=== PATIENT | male | born 1995 | race Two or more races ===

== ENCOUNTER 2020-02-18 17:35 | Emergency (ER) | payer OTHER ==
[~2020-02-18] VITALS: Ht 180.3 cm; Wt 125.6 kg
--- NOTE | 2020-02-18 17:50 | NUR ---
ED Nurse Note: Patient walked into ED from home c/o hemauria and tingling with urination since Saturday. Patient AxO x 4, no s/s of acute distress.
[2020-02-18 17:55] VITALS: BP 133/85
--- NOTE | 2020-02-18 18:02 | NUR ---
ED Nurse Note: Urine specimen collected and sent to lab
--- NOTE | 2020-02-18 18:19 | Emergency Room Report ---
History of Present Illness General Chief Complaint: Male Urogenital Problems Source: Patient Present Illness HPI 24-year-old male with no past medical history presents with mild hematuria for the past 5 days. He reports his urine is normal colored and then at the end there are few drops of blood. No clots. He denies any fever, flank pain, abdominal pain, dysuria. He does report urinary frequency and urgency. He denies any penile discharge. He has not been sexually active since October and has no history of STIs. No history of kidney stones. 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 Patient History Past Medical History: see triage record Reviewed Nursing Documentation: PMH: Agreed; PSxH: Agreed Nursing Documentation-PMH Past Medical History: No Stated History Review of Systems All Other Systems: negative except mentioned in HPI Physical Exam Vital Signs Date Time Temp Pulse Resp B/P (MAP) Pulse Ox O2 Delivery O2 Flow Rate FiO2 02/18/20 17:45 98.8 89 18 133/85 (101) 98 Room Air Sp02 EP Interpretation: reviewed, normal General Appearance: normal inspection, well appearing, no apparent distress, alert, GCS 15, non-toxic ENT: EOM grossly intact, normal pharynx, normal voice, TMs + canals normal, uvula midline Neck: normal inspection, full range of motion, supple, thyroid normal, no meningismus, no bony tend Respiratory: chest non-tender, lungs clear, normal breath sounds, no respiratory distress Cardiovascular #1: normal peripheral pulses, regular rate, rhythm Gastrointestinal: normal inspection, normal bowel sounds, non tender, soft, no mass, no organomegaly, no guarding, no rebound Genitourinary: no CVA tenderness Musculoskeletal: normal inspection, normal range of motion, no calf tenderness , gait/station normal, non-tender Neurologic: alert, motor strength/tone normal, pipe finisher III-XII nml as tested, oriented x3, sensory intact, speech normal Psychiatric: judgement/insight normal, mood/affect normal Skin: no rash, normal color, warm/dry Lymphatic: no adenopathy Medical Decision Making PA Attestation Dr. Alford is my supervising physician whom patient management and care has been discussed with. Diagnostic Impression: Primary Impression: UTI (urinary tract infection) Qualified Codes: N39.0 - Urinary tract infection, site not specified; R31.9 - Hematuria, unspecified ER Course Pt. presents to the ED c/o mild hematuria for 5 days with no dysuria, fever, flank pain. Ddx considered but are not limited to UTI, pyelonephritis, nephrolithiasis, bladder mass. Vital signs: are WNL, pt. is afebrile H&PE are most consistent with UTI ORDERS: Urinalysis shows UTI ED INTERVENTIONS: None required at this time. DISCHARGE: At this time pt. is stable for d/c to home. Will provide printed patient care instructions, and prescription for Cipro. Advised to follow up outpatient in 1-2 days. Care plan and follow up instructions have been discussed with the patient prior to discharge. Laboratory Tests Test 02/18/20 18:00 Urine Color Pale yellow Urine Appearance Cloudy Urine pH 5 (4.5-8.0) Urine Specific [place] 1.020 (1.005-1.035) Urine Protein 1+ (NEGATIVE) H Urine Glucose (UA) Negative (NEGATIVE) Urine Ketones Negative (NEGATIVE) Urine Blood 4+ (NEGATIVE) H Urine Nitrite Negative (NEGATIVE) Urine Bilirubin Negative (NEGATIVE) Urine Urobilinogen 1 MG/DL (0.0-1.0) H Urine Leukocyte Esterase 3+ (NEGATIVE) H Urine RBC 2-4 /HPF (0 - 0) H Urine WBC Tntc /HPF (0 - 0) H Urine Squamous Epithelial Cells Few /LPF (NONE/OCC) Urine Bacteria Few /HPF (NONE) Last Vital Signs Date Time Temp Pulse Resp B/P (MAP) Pulse Ox O2 Delivery O2 Flow Rate FiO2 02/18/20 17:55 98.8 18 133/85 98 Room Air 02/18/20 17:45 89 Disposition: HOME, SELF-CARE Condition: Stable Scripts Ciprofloxacin* (CIPRO*) 500 Mg Tablet 500 MG PO BID for 7 Days, #14 TAB Prov: Feli Partida N. P.A. 02/18/20 Feli Partida N. P.AHarpal February 18, 2020 18:19
[2020-02-18 18:30] VITALS: BP 133/85
--- NOTE | 2020-02-18 18:30 | NUR ---
ER DISCHARGE NOTE: Patient is cleared to be discharged per Feli CONNELLY, pt is aox4, on room air, with stable vital signs. pt was given dc and prescription instructions, pt was able to verbalize understanding, pt id band removed. pt is able to ambulate with steady gait. pt took all belongings.
[2020-02-18 18:43] LABS: APPEARANCE,URINE CLOUDY; BILIRUBIN, URINE NEGATIVE (NEGATIVE); COLOR,URINE PALE YELLOW; GLUCOSE, URINE (UA) NEGATIVE (NEGATIVE); KETONES,URINE NEGATIVE (NEGATIVE); LEUKOCYTE ESTERASE ,URINE 3+ (NEGATIVE); NITRITE,URINE NEGATIVE (NEGATIVE); PH,URINE 5 (4.5-8.0); PROTEIN,URINE 1+ (NEGATIVE); UROBILINOGEN,URINE 1 MG/DL (0.0-1.0)
[2020-02-18] MEDS ORDERED: CIPRO500 MG PO (18:48)
== END 2020-02-18 18:30 | disposition home or self-care (01) ==
LOC: EMR 17:55
DX: N39.0 Urinary tract infection, site not specified (principal)
CPT/HCPCS: 81003; 87086; 87181; Z7502; 99282